=== PATIENT | male | born 1940 | race African-American/Black ===

== ENCOUNTER 2017-06-16 09:22 | Emergency (ER) | payer OTHER ==
[~2017-06-16] VITALS: Ht 180.3 cm; Wt 72.6 kg
[~2017-06-16 09:22] MED LIST: FLEXERIL PO; FLOXIN OTI0.3 %/5 M1 OT; HTN MED; IBUPROFEN 600600 M1 PO; LISINOPRIL10 MG; NORCO 5-325 TA1 EACH PO
[2017-06-16] MEDS ORDERED: PRINIVIL20 MG PO (10:03)
[2017-06-16] MEDS ORDERED: AMLODIPINE BESY10 MG PO (10:03)
[2017-06-16] MEDS ORDERED: FLOMAX0.4 MG PO (10:03)
[2017-06-16 10:51] LABS: ABSOLUTE NEUTROPHILS 2.4 thou/uL (1.4-8.2); BASOPHILS 0.3 % (0.0-2.0); EOSINOPHILS 1.8 % (0.0-3.0); HEMATOCRIT 33.3 % (42.0-52.0); HEMOGLOBIN 11.2 gm/dL (14.0-18.0); LYMPHOCYTES 30.3 % (24.0-44.0); MCH 30.9 pg (26.0-34.0); MCHC 33.7 g/dL (28.0-37.0); MCV 91.6 fL (80.0-100.0); MONOCYTES 7.8 % (1.0-8.0); PLATELET COUNT 137 thou/uL (150-400); POLYS 59.8 % (36.0-66.0); RBC 3.63 mil/uL (4.50-6.00); RDW 13.8 % (10.5-14.5); WBC 4.1 thou/uL (4.0-11.0)
[2017-06-16 10:58] LABS: MANUAL DIFF NO
[2017-06-16 11:01] LABS: CALCIUM 8.7 mg/dL (8.5-10.1); CREATININE 1.1 mg/dL (0.7-1.3); POTASSIUM 3.8 mmol/L (3.5-5.1)
[2017-06-16 12:42] LABS: URINE BILIRUBIN NEGATIVE (Negative); URINE BLOOD NEGATIVE (Negative); URINE COLOR YELLOW; URINE GLUCOSE-RANDOM* NEGATIVE (Negative); URINE KETONES NEGATIVE (Negative); URINE NITRITE NEGATIVE (Negative); URINE PROTEIN (DIPSTICK) NEGATIVE (Negative); URINE SPECIFIC GRAVITY <= 1.005 (1.003-1.035); URINE UROBILINOGEN 0.2 E.U./dl (0.2-1.0)
[2017-06-16 13:22] VITALS: BP 138/76
== END 2017-06-16 13:22 | disposition home or self-care (01) ==
LOC: ER 09:22
PROVIDERS: Nurse Practitioner
DX: T78.3XXA Angioneurotic edema, initial encounter (principal); I10 Essential (primary) hypertension; F10.99 Alcohol use, unspecified with unspecified alcohol-induced disorder; T50.995A Adverse effect of other drugs, medicaments and biological substances, initial encounter; Y84.9 Medical procedure, unspecified as the cause of abnormal reaction of the patient, or of later complication, without mention of misadventure at the time of the procedure; Y92.89 Other specified places as the place of occurrence of the external cause

== ENCOUNTER 2018-08-27 11:37 | Emergency (ER) | payer OTHER ==
[~2018-08-27] VITALS: Ht 180.3 cm; Wt 63.5 kg
[~2018-08-27 11:37] MED LIST changes: +AMLODIPINE BESY10 MG PO; +FLOMAX0.4 MG PO; +PRINIVIL20 MG PO
[2018-08-27 11:38] VITALS: BP 145/81
[2018-08-27] MEDS ORDERED: NORCO 5-325 TA1 EACH PO (13:00)
== END 2018-08-27 13:13 | disposition home or self-care (01) ==
LOC: ER 11:37
DX: S76.311A Strain of muscle, fascia and tendon of the posterior muscle group at thigh level, right thigh, initial encounter (principal); I10 Essential (primary) hypertension; Z88.8 Allergy status to other drugs, medicaments and biological substances; X50.0XXA Overexertion from strenuous movement or load, initial encounter; Y92.89 Other specified places as the place of occurrence of the external cause; Y93.89 Activity, other specified; Y99.8 Other external cause status